=== PATIENT | female | born 1945 | race African-American/Black ===

== ENCOUNTER 2022-05-23 06:33 | Inpatient (IN) | payer OTHER, MEDICAID ==
[~2022-05-23] VITALS: Ht 152.4 cm; Wt 54.4 kg
[2022-05-23] VITALS (38 sets, daily range): BP systolic 26–190; BP diastolic 18–126
[2022-05-23] MEDS ORDERED: DEXTROSE 50% WATER 50ML SYRINGE IV ONE (07:30)
[2022-05-23] MEDS ORDERED: ACETAMINOPHEN 325MG TABLET PO ONE (09:30)
[2022-05-23 10:22] LABS: HEMATOCRIT. 35.5 % (36.0-48.0); HEMOGLOBIN. 11.1 g/dL (12.0-16.0); MEAN CORPUSCULAR HEMOGLOBIN 31.8 pg (28.0-32.0); MEAN CORPUSCULAR VOLUME 101.6 fL (81.0-99.0); MEAN PLATELET VOLUME 11.1 fl (7.4-10.4); PLATELET 144 x1000/uL (130-400); RED BLOOD CELL COUNT 3.49 mill/uL (4.2-5.4); RED CELL DISTRIBUTION WIDTH 15.5 % (11.6-14.6)
[2022-05-23 10:33] LABS: CHLORIDE 94 mEq/L (98-107)
[2022-05-23 10:49] LABS: ETHANOL BLOOD < 10 mg/dL
[2022-05-23 10:58] LABS: NUCLEATED RED BLOOD CELLS 1 /100 WBC
[2022-05-23 10:59] LABS: PLATELET ESTIMATE NORMAL
[2022-05-23] MEDS ORDERED: FENTANYL CITRATE/PF 50MCG/ML 2ML VIAL IV NR (11:00)
[2022-05-23] MEDS ORDERED: ENOXAPARIN 40MG/0.4ML SYR SUBCUT NR (11:00)
[2022-05-23] MEDS ORDERED: SODIUM CHLORIDE 0.9% 500 ML IV ONE ×2 (11:00→11:30)
[2022-05-23] MEDS ORDERED: PIPERACILLIN/TAZ 3.375G PREMIX 50 ML IV ONE (11:30)
[2022-05-23] MEDS ORDERED: SODIUM BICARBONATE 8.4% 1 MEQ/ML 50ML SYR IV ONE (11:30)
[2022-05-23] MEDS ORDERED: SODIUM CHLORIDE 0.9% 1000ML BAG (SEPSIS BOLUS) IV ONE (11:30)
[2022-05-23] MEDS ORDERED: VANCOMYCIN 1G PREMIX 200 ML IV ONE (11:30)
[2022-05-23] MEDS ORDERED: SODIUM BICARBONATE 100 MEQ in DEXTROSE 5% WATER 1,000 ML IV SCH (12:15)
[2022-05-23] MEDS ORDERED: LEVOTHYROXINE SODIUM 100 MCG/ VIAL IV NR (12:30)
[2022-05-23 12:48] LABS: BG BASE EXCESS -12.9 mmol/L (-2.0-2.0); BG CARBOXYHEMOGLOBIN 0.2 % (0.5-1.5); BG DEOXYHEMOGLOBIN 9.1 % (0.0-5.0); BG HCO3 ACT 12.3 mmol/L (22.0-26.0); BG METHEMOGLOBIN 0.3 % (0.0-1.5); BG OXYGEN SATURATION 90.9 % (92.0-98.5); BG OXYHEMOGLOBIN 90.4 % (94.0-97.0); BG PCO2 26.5 mmHg (35.0-45.0); BG PH 7.285 (7.350-7.450); BG PO2 68.6 mmHg (75.0-100.0); BG SAMPLE SITE LEFT RADIAL; BG TOTAL HEMOGLOBIN 10.7 g/dL (12.0-18.0); BG VENT MODE ROOM AIR
[2022-05-23] MEDS ORDERED: LACTULOSE ENEMA 1,000ML BOTTLE PR SCH (13:00)
[2022-05-23] MEDS ORDERED: CLONIDINE 0.1MG TABLET PO PRN (14:30)
[2022-05-23] MEDS ORDERED: GUAIFENESIN 200MG/10ML SUGAR FREE UDC PO PRN (14:30)
[2022-05-23] MEDS ORDERED: ACETAMINOPHEN 325MG TABLET PO PRN ×2 (14:30)
[2022-05-23] MEDS ORDERED: DOCUSATE SODIUM 100MG CAPSULE PO PRN (14:30)
[2022-05-23] MEDS ORDERED: ONDANSETRON HCL 4MG/2ML INJ IV PRN (14:30)
[2022-05-23] MEDS ORDERED: DEXT 5%/0.9% NACL 1,000 ML IV SCH (14:45)
[2022-05-23] MEDS: NOREPINEPHRINE 8 MG in DEXT 5% WATER 242 ML IV PRN ×2 (16:58→21:24)
[2022-05-23] MEDS ORDERED: RIVAROXABAN 10 MG TABLET PO SCH (17:00)
[2022-05-23 17:01] LABS: BG BASE EXCESS -16.1 mmol/L (-2.0-2.0); BG CARBOXYHEMOGLOBIN 0.3 % (0.5-1.5); BG DEOXYHEMOGLOBIN 4.1 % (0.0-5.0); BG HCO3 ACT 10.9 mmol/L (22.0-26.0); BG METHEMOGLOBIN 0.3 % (0.0-1.5); BG OXYGEN SATURATION 95.9 % (92.0-98.5); BG OXYHEMOGLOBIN 95.3 % (94.0-97.0); BG PCO2 29.8 mmHg (35.0-45.0); BG PO2 104.3 mmHg (75.0-100.0); BG SAMPLE SITE RIGHT RADIAL; BG TOTAL HEMOGLOBIN 10.1 g/dL (12.0-18.0); BG VENT MODE NASAL CANNULA
[2022-05-23] MEDS ORDERED: NOREPINEPHRINE 32 MG in DEXT 5% WATER 218 ML IV PRN (18:00)
[2022-05-23] MEDS ORDERED: SODIUM CHLORIDE 0.9% 1000ML BAG (SEPSIS BOLUS) IV NR (19:45)
[2022-05-23] MEDS: IPRATROPIUM/ALBUTEROL 0.5-3(2.5)MG/3ML NEB HHN PRN (20:07)
[2022-05-23] MEDS ORDERED: SODIUM BICARBONATE 8.4% 1 MEQ/ML 50ML SYR IV NR (20:30)
[2022-05-23] MEDS: SODIUM BICARBONATE 100 MEQ in DEXTROSE 5% WATER 1,000 ML IV SCH ×2 (20:40→20:52)
[2022-05-23] MEDS: DEXT 5%/0.9% NACL 1,000 ML IV SCH (20:42)
[2022-05-23] MEDS ORDERED: LEVOFLOXACIN 500MG PREMIX 100 ML IV NR (21:00)
[2022-05-23 21:20] LABS: INR 1.6; PROTHROMBIN TIME 16.8 sec (9.6-11.0)
[2022-05-23 21:30] LABS: AMYLASE 317 IU/L (25-115)
[2022-05-23] MEDS ORDERED: PIPERACILLIN/TAZOBACTAM 3.375 G in DEXTROSE 5% WATER 50 ML IV SCH (22:00)
[2022-05-23] MEDS ORDERED: KCL 20MEQ/100ML PREMIX 100 ML IV NR (22:15)
[2022-05-23] MEDS: PIPERACILLIN/TAZOBACTAM 3.375 G in DEXTROSE 5% WATER 50 ML IV SCH (22:19)
[2022-05-23] MEDS ORDERED: POTASSIUM CHLORIDE 20MEQ TABLET SR PO NR (22:24)
[2022-05-23] MEDS: PHENYLEPHRINE 50 MG in DEXT 5% WATER 245 ML IV PRN (22:52)
[2022-05-24] VITALS (12 sets, daily range): BP systolic 39–85; BP diastolic 15–62
[2022-05-24 00:12] LABS: HEMATOCRIT. 27.4 % (36.0-48.0); HEMOGLOBIN. 8.6 g/dL (12.0-16.0); MEAN CORPUSCULAR HEMOGLOBIN 31.7 pg (28.0-32.0); MEAN CORPUSCULAR VOLUME 101.1 fL (81.0-99.0); PLATELET 117 x1000/uL (130-400); RED BLOOD CELL COUNT 2.71 mill/uL (4.2-5.4); RED CELL DISTRIBUTION WIDTH 15.7 % (11.6-14.6)
[2022-05-24 00:28] LABS: CREATINE KINASE MB FRACTION 17.2 ng/mL (0.5-3.6)
[2022-05-24] MEDS ORDERED: EPINEPHRINE 10 MG in SODIUM CHLORIDE 0.9% 240 ML IV PRN (01:45)
[2022-05-24] MEDS: VASOPRESSIN 20 UNIT in SODIUM CHLORIDE 0.9% 99 ML IV PRN ×2 (01:48→09:39)
[2022-05-24 02:27] LABS: BG BASE EXCESS -19.1 mmol/L (-2.0-2.0); BG CARBOXYHEMOGLOBIN 0.5 % (0.5-1.5); BG DEOXYHEMOGLOBIN 0.4 % (0.0-5.0); BG FRACTION INSPIRED OXYGEN 100; BG HCO3 ACT 10.4 mmol/L (22.0-26.0); BG METHEMOGLOBIN 0.2 % (0.0-1.5); BG OXYGEN SATURATION 99.6 % (92.0-98.5); BG OXYHEMOGLOBIN 98.9 % (94.0-97.0); BG PCO2 41.8 mmHg (35.0-45.0); BG PH 7.014 (7.350-7.450); BG PO2 379.8 mmHg (75.0-100.0); BG TOTAL HEMOGLOBIN 6.9 g/dL (12.0-18.0); BG VENT MODE VENT - AC
[2022-05-24 03:38] LABS: NUCLEATED RED BLOOD CELLS 3 /100 WBC; PLATELET ESTIMATE DECREASED
[2022-05-24] MEDS: SODIUM BICARBONATE 100 MEQ in DEXTROSE 5% WATER 1,000 ML IV SCH (04:33)
[2022-05-24] MEDS: PHENYLEPHRINE 50 MG in DEXT 5% WATER 245 ML IV PRN ×2 (04:52→09:06)
[2022-05-24 06:56] LABS: CHLORIDE 92 mEq/L (98-107)
[2022-05-24 07:39] LABS: HDL CHOLESTEROL 24 mg/dL (40-59); LDL CHOLESTEROL 42 mg/dL (5-100)
[2022-05-24] MEDS ORDERED: LEVOTHYROXINE SODIUM 100MCG TABLET PO SCH (07:50)
[2022-05-24 08:12] LABS: PHOSPHORUS 10.8 mg/dL (2.5-4.9)
[2022-05-24] MEDS ORDERED: PANTOPRAZOLE SODIUM 40 MG/VIAL IV SCH ×2 (09:00)
[2022-05-24] MEDS ORDERED: ENOXAPARIN 60MG/0.6ML SYR SUBCUT SCH (09:00)
[2022-05-24] MEDS: PIPERACILLIN/TAZOBACTAM 3.375 G in DEXTROSE 5% WATER 50 ML IV SCH (09:04)
[2022-05-24] MEDS: DEXT 5%/0.9% NACL 1,000 ML IV SCH (09:04)
[2022-05-24 09:23] LABS: BG FRACTION INSPIRED OXYGEN 80; BG HCO3 ACT 5.5 mmol/L (22.0-26.0); BG PCO2 34.8 mmHg (35.0-45.0); BG PH 6.813 (7.350-7.450); BG PO2 59.8 mmHg (75.0-100.0); BG SAMPLE SITE RIGHT RADIAL; BG TOTAL HEMOGLOBIN < 4.5 g/dL (12.0-18.0); BG VENT MODE VENT - AC
[2022-05-24] MEDS: IPRATROPIUM/ALBUTEROL 0.5-3(2.5)MG/3ML NEB HHN PRN (09:32)
[2022-05-24] MEDS ORDERED: SODIUM BICARBONATE 8.4% 1 MEQ/ML 50ML SYR IV NR (09:45)
[2022-05-24 10:31] LABS: BASOPHILS % 0.9 % (0.0-2.0); EOSINOPHILS % 0.3 % (0.0-5.0); HEMOGLOBIN. 10.5 g/dL (12.0-16.0); LYMPHOCYTES % 23.8 % (20.0-50.0); MEAN CORPUSCULAR HEMOGLOBIN 32.4 pg (28.0-32.0); MEAN CORPUSCULAR VOLUME 126.9 fL (81.0-99.0); MONOCYTES % 3.1 % (2.0-8.0); NEUTROPHILS % 71.9 % (40.0-76.0); RED BLOOD CELL COUNT 3.23 mill/uL (4.2-5.4); RED CELL DISTRIBUTION WIDTH 17.8 % (11.6-14.6)
[2022-05-24 11:36] LABS: PLATELET 30 x1000/uL (130-400)
[2022-05-24] MEDS ORDERED: ENOXAPARIN 40MG/0.4ML SYR SUBCUT SCH (12:00)
[2022-05-24] MEDS ORDERED: VANCOMYCIN 750MG PREMIX 150 ML IV NR (12:00)
== END 2022-05-24 10:31 | DRG 871 ==
LOC: ER 06:50 → CVICU 12:46 → EDBEDREQTM 12:59 → EDBEDREQSVC 12:59 → EDBEDREQ 12:59 → ENRESERV 13:10
PROVIDERS: ADMIT Internal Medicine; ATTEND Internal Medicine
PROC: 02HV33Z Insertion of Infusion Device into Superior Vena Cava, Percutaneous Approach (ICD-10-PCS; principal; 2022-05-23)
PROC: B548ZZA Ultrasonography of Superior Vena Cava, Guidance (ICD-10-PCS; 2022-05-23)
PROC: 5A1935Z Respiratory Ventilation, Less than 24 Consecutive Hours (ICD-10-PCS; 2022-05-23)
PROC: 0BH17EZ Insertion of Endotracheal Airway into Trachea, Via Natural or Artificial Opening (ICD-10-PCS; 2022-05-24)
PROC: 30233N1 Transfusion of Nonautologous Red Blood Cells into Peripheral Vein, Percutaneous Approach (ICD-10-PCS; 2022-05-24)
PROC: 5A2204Z Restoration of Cardiac Rhythm, Single (ICD-10-PCS; 2022-05-24)
DX: A41.9 Sepsis, unspecified organism (principal); E43 Unspecified severe protein-calorie malnutrition; G93.41 Metabolic encephalopathy; J96.01 Acute respiratory failure with hypoxia; R65.21 Severe sepsis with septic shock; N17.0 Acute kidney failure with tubular necrosis; K85.90 Acute pancreatitis without necrosis or infection, unspecified; J69.0 Pneumonitis due to inhalation of food and vomit; E72.20 Disorder of urea cycle metabolism, unspecified; E87.1 Hypo-osmolality and hyponatremia; E87.20 Acidosis, unspecified; D68.8 Other specified coagulation defects; D53.9 Nutritional anemia, unspecified; E03.9 Hypothyroidism, unspecified; E78.5 Hyperlipidemia, unspecified; E86.0 Dehydration; E87.6 Hypokalemia; E87.8 Other disorders of electrolyte and fluid balance, not elsewhere classified; E88.09 Other disorders of plasma-protein metabolism, not elsewhere classified; I11.0 Hypertensive heart disease with heart failure; Z66 Do not resuscitate; I25.10 Atherosclerotic heart disease of native coronary artery without angina pectoris; K21.9 Gastro-esophageal reflux disease without esophagitis; I49.01 Ventricular fibrillation; R57.1 Hypovolemic shock; M19.90 Unspecified osteoarthritis, unspecified site; I46.9 Cardiac arrest, cause unspecified; I48.91 Unspecified atrial fibrillation; K76.82 Hepatic encephalopathy; I50.9 Heart failure, unspecified; Z96.651 Presence of right artificial knee joint; Z79.01 Long term (current) use of anticoagulants; Z82.49 Family history of ischemic heart disease and other diseases of the circulatory system; Z86.73 Personal history of transient ischemic attack (TIA), and cerebral infarction without residual deficits; Z87.891 Personal history of nicotine dependence; Z68.23 Body mass index [BMI] 23.0-23.9, adult; Z98.890 Other specified postprocedural states
CPT/HCPCS: 31500; 36415; 36573; 36600; 71045; 71250; 73590; 74176; 76770; 80048; 80053; 80061; 80202; 80307; 80320; 80329; 82140; 82150; 82375; 82550; 82553; 82805; 82962; 83605; 83735; 83880; 84100; 84145; 84439; 84443; 84484; 85025; 85379; 86850; 86900; 86920; 87070; 87077; 87186; 92950; 93005; 93306; 93923; 93971; 94002; 94003; 94640; 99291; C1725; C9113; J1650; J1956; J2370; J2543; J3370; J3480; J3490; J7030; J7040; J7042; J7050; J7060; J7070; P9016; A4315; G0480